=== PATIENT | male | born 1995 | race Caucasian/White ===

== ENCOUNTER 2018-06-30 17:34 | Emergency (ER) | payer OTHER ==
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
== END 2018-06-30 20:41 | disposition home or self-care (01) ==
LOC: ERS 17:34
DX: S80.212A Abrasion, left knee, initial encounter (principal); S80.211A Abrasion, right knee, initial encounter; S90.511A Abrasion, right ankle, initial encounter; M54.2 Cervicalgia; V89.2XXA Person injured in unspecified motor-vehicle accident, traffic, initial encounter
CPT/HCPCS: 72040; G0390